=== PATIENT | male | born 1995 | race Caucasian/White ===

== ENCOUNTER 2019-11-29 18:45 | Emergency (ER) | payer SELFPAY ==
[~2019-11-29] VITALS: Ht 172.7 cm; Wt 90.7 kg
[2019-11-29] MEDS ORDERED: ACETAMINOPHEN325 M1 PO (18:57)
[2019-11-29] MEDS ORDERED: IBUPROFEN600 MG PO (18:57)
[2019-11-29] MEDS ORDERED: DOK100 MG PO (18:57)
--- OUTSIDE RECORDS SUMMARY | 2019-11-29 20:04 | XMS ---
PreManage Notification: NADEEN JONAS Security [employer] Work[employer]per Events No recent Security Events currently on file CRITERIA MET - [facility] - 2 Visits in 30 Days CARE PROVIDERS There are no care providers on record at this time. [place] has no Care Guidelines for this patient. Venkat VISIT COUNT (12 MO.) [address] [place] TOTAL 3 NOTE: Visits indicate total known visits. ED/C VISIT TRACKING (12 MO.) [facility] COMPLAINT: - SYNCOPE 11/04/2019 18:58 [facility] [place] TYPE: Emergency DIAGNOSES: - +SCREENING; SOB, FEVER, ABD PAIN, FATIGUE - Acute appendicitis with perf and loc peritonitis, w/o abscs - Peritonitis, unspecified 10/01/2019 14:38 [facility] [place] TYPE: Emergency DIAGNOSES: - Other general symptoms and signs - COVID TEST SENT BY EMPLOYER - Contact with and (suspected) exposure to other viral communic INPATIENT VISIT TRACKING (12 MO.) 11/04/2019 18:58 [facility] [place] TYPE: Surgery DIAGNOSES: - Unspecified open wound of abdominal wall, unspecified quadran - Acute appendicitis with perf and loc peritonitis, w/o abscs - Peritonitis, unspecified [email or web address]
--- NOTE | 2019-11-30 12:30 | EKG ---
[facility] [address] [facility] [place] [address] Signed Sinus rhythm with marked sinus arrhythmia Otherwise normal ECG No previous ECGs available Confirmed by RANCHO MANZO MD ([id number] on 11/30/2019 12:29:55 PM Electronically Signed By: RANCHO MANZO MD 11/30/19 1230 PATIENT NAME: NADEEN JONAS Electrocardiogram DATE OF : [birth year] PHYSICIAN: RANCHO MANZO MD REPORT #: [id number] REPORT IS CONFIDENTIAL AND NOT TO BE RELEASED WITHOUT AUTHORIZATION
== END 2019-11-29 20:47 | disposition home or self-care (01) ==
LOC: ED 18:45
DX: R55 Syncope and collapse (principal)
CPT/HCPCS: 80053; 83605; 83735; 84484; 85025; 93005; 93010; 96360; 99284-25; J7030